=== PATIENT | male | born 1960 | race Caucasian/White ===

== ENCOUNTER 2022-08-17 10:47 | Emergency (ER) | payer OTHER ==
[~2022-08-17] VITALS: Ht 172.7 cm; Wt 86.4 kg
[2022-08-17 10:50] VITALS: BP 145/95
[2022-08-17 11:00] VITALS: BP 155/88
[2022-08-17] MEDS ORDERED: PROTONIX20 M1 PO (11:13)
[2022-08-17] MEDS ORDERED: NORVASC5 M1 PO (11:14)
[2022-08-17 11:15] VITALS: BP 140/87
[2022-08-17] MEDS ORDERED: HYDROCHLOROTH12.5 M1 PO (11:17)
[2022-08-17] MEDS ORDERED: CRESTOR10 MG PO (11:18)
[2022-08-17 11:30] VITALS: BP 153/90
[2022-08-17 11:45] VITALS: BP 158/96
== END 2022-08-17 12:02 | disposition home or self-care (01) | DRG 914 ==
LOC: ED 10:47
DX: S09.90XA Unspecified injury of head, initial encounter (principal); S00.03XA Contusion of scalp, initial encounter; S51.811A Laceration without foreign body of right forearm, initial encounter; W45.8XXA Other foreign body or object entering through skin, initial encounter; W11.XXXA Fall on and from ladder, initial encounter